=== PATIENT | male | born 1940 | race Caucasian/White ===

== ENCOUNTER 2018-05-27 09:43 | Emergency (ER) | payer MEDICARE, OTHER ==
[~2018-05-27] VITALS: Ht 188 cm; Wt 108.9 kg
[~2018-05-27 09:43] MED LIST: ALBIPROI INH; ALBU.083IS IH; ALBU3IS INH; ALBU90OI6 INH; AMOCLA875 PO; ASCO500 PO; ASPI325EC PO; ASPI81CH PO; AZIT250 PO; AZIT500 PO; BISTOLIC; Bactrim Ds Tab1 EACH PO; CALCAVITD PO; CEFD300 PO; CEPH500 PO; CLOP75 PO; DILT120ER PO; DOC250 PO; ENAL2.5 PO; ENAL20 PO; ENAL5 PO; ENALAPRIL; EZET10; FLUSAL2505 INH; FURO20 PO; HYDACE5 PO; IBUP400 PO; LAVAP17G PO; LEVFLO500 PO; LEVO750 PO; Lasix20 MG PO; MAGOXI400 PO; METO25ER PO; METO50ER PO; NAPROSYN; NEBI10 PO; Norco 5-325 Ta1 EACH PO; OMEP20ER PO; OXYC5 PO; POTCHL20ER PO; PRED10 PO; PRED20 PO; PRED5 PO; Percocet 5-3251 EACH PO; ROFL500T PO; ROSU5 PO; SIMV10 PO; SPIHYD PO; Sulfamethoxazo1 EAC4 PO; TUDORZA PRESS400 MCG IH; TUDORZA PRESS400 MCG INH
[2018-05-27] MEDS ORDERED: NITR.4SL SL (11:20)
[2018-05-27] MEDS ORDERED: ALBU90OI61 INH (11:21)
== END 2018-05-27 12:17 | disposition left against medical advice (07) ==
LOC: ER 09:43
DX: M25.552 Pain in left hip (principal); Z88.8 Allergy status to other drugs, medicaments and biological substances; Z79.899 Other long term (current) drug therapy; Z79.82 Long term (current) use of aspirin; Z79.52 Long term (current) use of systemic steroids; J44.9 Chronic obstructive pulmonary disease, unspecified; I10 Essential (primary) hypertension; Z87.891 Personal history of nicotine dependence; Z86.73 Personal history of transient ischemic attack (TIA), and cerebral infarction without residual deficits
CPT/HCPCS: 72100; 96372; 99283-25; J2270

== ENCOUNTER → 2019-03-21 | Outpatient (CLI) | payer MEDICARE, OTHER ==
[~2019-03-21] MED LIST changes: +ALBU90OI61 INH; +NITR.4SL SL
[2019-03-21 13:05] LABS: Appearance, Urine Hazy (Clear); Bilirubin, Urine Neg (Neg); Blood, Urine 3+ (Neg); Color, Urine Yellow (P-Yellow); Glucose Qualitative, Urine Neg (Neg); Ketones, Urine Neg (Neg); Leukocyte Esterase, Urine 2+ (Neg); Nitrite, Urine Neg (Neg); Protein, Urine 4+ (Neg); Specific Gravity, Urine 1.025 (1.003-1.022); Urobilinogen, Urine NORM (Normal)
[2019-03-21 13:28] LABS: Bacteria Many /hpf; Squamous Epithelial Cells Rare /hpf (Few); White Blood Cells, Urine 25-50 /hpf (0-5)
[2019-03-21 13:29] LABS: Calcium Oxalate Crystals Few /hpf
== END | disposition home or self-care (01) ==
LOC: LAB SHORT 08:33 → LAB SRC 08:33 → LAB 08:33
PROVIDERS: Family Medicine
DX: R35.0 Frequency of micturition (principal); R30.0 Dysuria
CPT/HCPCS: 81001; 87077; 87086; 87186

== ENCOUNTER → 2019-05-23 | Outpatient (CLI) | payer MEDICARE, OTHER | END | disposition home or self-care (01) | LOC: LAB SHORT 11:30 → LAB 11:30 | DX: R35.0 Frequency of micturition (principal) | CPT/HCPCS: 87077; 87086; 87186 ==

== ENCOUNTER 2019-06-23 06:16 | Inpatient (IN) | payer MEDICARE, OTHER ==
[~2019-06-23] VITALS: Ht 188 cm; Wt 111.1 kg
[~2019-06-23 06:16] MED LIST changes: -ASPI81CH PO; +Aspirin EC81 MG PO; +FLUT1DIS5 INH
[2019-06-23 07:17] LABS: BASOPHILS ABSOLUTE AUTO 0.07 K/mm3 (0.00-0.23); BASOPHILS PERCENT AUTO 0 % (0-2); EOSINOPHILS ABSOLUTE AUTO 0.03 K/mm3 (0.00-0.68); EOSINOPHILS PERCENT AUTO 0 % (0-6); Hematocrit 44.8 % (37.0-53.0); Hemoglobin 14.6 g/dL (13.5-17.5); IMMATURE GRAN ABSOLUTE AUTO 0.24 K/mm3 (0.00-0.10); IMMATURE GRAN PERCENT AUTO 1 % (0-1); LYMPHOCYTES ABSOLUTE AUTO 1.41 K/mm3 (0.84-5.20); LYMPHOCYTES PERCENT AUTO 6 % (21-46); MONOCYTES PERCENT AUTO 10 % (4-13); Mean Corpuscular HGB 28.5 pg (26.0-34.0); Mean Corpuscular HGB Conc 32.6 g/dL (31.5-36.5); Mean Corpuscular Volume 87 fL (80-100); Mean Platelet Volume 10.1 fL (9.1-12.4); NEUTROPHILS ABSOLUTE AUTO 20.57 K/mm3 (1.96-9.15); NEUTROPHILS PERCENT AUTO 83 % (41-73); Platelet Count 221 K/mm3 (150-400); RDW Coefficient Variation 14.3 % (11.7-14.2); RDW Standard Deviation 45.9 fL (35.1-46.3); Red Blood Cell Count 5.13 M/mm3 (4.30-5.90); White Blood Cell Count 24.82 K/mm3 (4.00-11.30)
[2019-06-23 07:37] LABS: Alanine Aminotransfer (ALT/SGP 22 U/L (12-78); Albumin, Blood 3.1 g/dL (3.4-5.0); Albumin/Globulin Ratio 0.8 (0.8-1.8); Alk Phos 89 U/L (50-136); Anion Gap 8 mmol/L (6-16); Aspartate Aminotrans (AST/SGOT 30 U/L (12-37); Bilirubin, Total 1.6 mg/dL (0.1-1.0); Blood Urea Nitrogen 17 mg/dL (8-24); CO2, Blood 28 mmol/L (21-32); Calcium, Blood 8.7 mg/dL (8.5-10.1); Chloride, Blood 99 mmol/L (98-108); Creatinine, Blood 0.95 mg/dL (0.60-1.20); Globulin, Blood 3.9 g/dL (2.2-4.0); Glomerular Filtration Rate >60 (60-); Glucose, Blood 81 mg/dL (70-99); Potassium, Blood 3.7 mmol/L (3.5-5.5); Sodium, Blood 135 mmol/L (136-145)
[2019-06-23] MEDS ORDERED: MIRALAX17 GM PO (15:06)
--- NOTE | 2019-06-23 16:37 | NUR ---
Echocardiogram completed.
[2019-06-23 17:45] LABS: Adenovirus Not Detected (NOT DETECT); Coronavirus 229E Not Detected (NOT DETECT); Coronavirus HKU1 Not Detected (NOT DETECT); Coronavirus NL63 Not Detected (NOT DETECT); Coronavirus OC43 Not Detected (NOT DETECT); Human Metapneumovirus Not Detected (NOT DETECT); Human Rhinovirus/Enterovirus Not Detected (NOT DETECT); Influenza A Not Detected (NOT DETECT); Influenza A/H1 Not Detected (NOT DETECT); Influenza A/H3 Not Detected (NOT DETECT)
[2019-06-23 17:46] LABS: Bordetella pertussis Not Detected (NOT DETECT); Chlamydophila pneumoniae Not Detected (NOT DETECT); Influenza A/2009-H1 Not Detected (NOT DETECT); Influenza B Not Detected (NOT DETECT); Mycoplasma pneumoniae Not Detected (NOT DETECT); Parainfluenza Virus 1 Not Detected (NOT DETECT); Parainfluenza Virus 2 Not Detected (NOT DETECT); Parainfluenza Virus 3 Not Detected (NOT DETECT); Parainfluenza Virus 4 Not Detected (NOT DETECT); Respiratory Syncytial Virus Not Detected (NOT DETECT)
--- NOTE | 2019-06-23 19:00 | NUR ---
SHIFT SUMMARY PT INSTRUCTED ON FALL PREVENTION AND ROOM SAFETY. PT WAS ENC TO CALL FOR ASSISTANCE PRIOR TO GETTING OOB, HIS WALKER WAS PLACED ACROSS THE ALLEGRA A REMINDER, THE PT INITIALLY AGREED, 2 MINUTES AFTER LEAVING THE ROOM THE PT WAS FOUND UP WALKING TRYING TO GET THE WALKER TO PLACE IT AT THE BEDSIDE, THE PT WAS REMINDED OF THE SAFETY MEASURES, HE BECAME ANGRY AND STARTED TO ARGUE, PT WAS EDUCATED ABOUT THE BED ALRM AT THIS TIME TO REMIND HIM TO CALL FOR ASSISTANCE, HE REFUSED AND BEGAN TO RAISE HIS VOICE. THE PT WAS OFFERED A CHAIR OR HELP REPOSITIONING IN THE BED, HE REFUSED AND CONTINUED TO ARGUE, THE NOC RN ENTERED THE ROOM, BEDSIDE REPORT WAS GIVEN, THE PT BEGAN TO ARGUE WITH HER OVER SAFETY MEASURES AND STATED THAT HE WOULD "JUST GO HOME BECAUSE HE HAS THE SAME DAMN PILLS THERE". THE PT WAS ENC TO STAY AND THAT WE WERE ONLY CONCERNED FOR HIS SAFETY. HE CONTINUED TO BE ANGRY AND AGRIVATED, THE CHARGE NURSE WAS NOTIFIED AT THIS TIME TO COME SPEAK WITH THE PT. THE PT IS CURRENTLY ON 4 L O2 VIA NC, LUNGS SOUNDS ARE COARSE, DIM IN THE BASES, VSS, SITTING AT THE EDGE OF THE BED, IV IS SL. OXYCODONE GIVEN FOR PAIN PER EMAR. CALL LIGHT IN REACH.
--- NOTE | 2019-06-23 19:43 | NUR ---
PERMISSION FOR CARE PT GAVE STUDENT PERMISSION TO PROVIDE CARE ON 06/23/19.
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
== END 2019-06-23 19:58 | disposition left against medical advice (07) | DRG 871 ==
LOC: ER 06:16 → ERHOLD 11:18 → PCU 13:40
PROVIDERS: Emergency Medicine; Nurse Practitioner Acute Care; ADMIT Internal Medicine
DX: A41.9 Sepsis, unspecified organism (principal); J96.21 Acute and chronic respiratory failure with hypoxia; I21.A1 Myocardial infarction type 2; J44.1 Chronic obstructive pulmonary disease with (acute) exacerbation; N39.0 Urinary tract infection, site not specified; J44.0 Chronic obstructive pulmonary disease with (acute) lower respiratory infection; F11.20 Opioid dependence, uncomplicated; Z99.81 Dependence on supplemental oxygen; I10 Essential (primary) hypertension; Z86.73 Personal history of transient ischemic attack (TIA), and cerebral infarction without residual deficits; Z87.891 Personal history of nicotine dependence; E78.5 Hyperlipidemia, unspecified; Z66 Do not resuscitate; J20.9 Acute bronchitis, unspecified
CPT/HCPCS: 0099U; 36415; 71045; 80053; 83605; 83880; 84145; 84484; 85025; 87040; 87070; 87077; 87081; 87185; 87205; 93005; 93010; 93306; 94640; 94760; 96365; 96375; 99285-25; A9270-GY; J0456; J0696; J1650; J2930; J7050

== ENCOUNTER → 2020-02-06 | Outpatient (CLI) | payer MEDICARE, OTHER ==
[~2020-02-06] MED LIST changes: +MIRALAX17 GM PO
== END | disposition home or self-care (01) ==
LOC: LAB 10:20 → LAB SHORT 10:20
DX: N30.01 Acute cystitis with hematuria (principal)
CPT/HCPCS: 87077; 87086; 87186

== ENCOUNTER → 2020-02-27 | Outpatient (CLI) | payer MEDICARE, OTHER | END | disposition home or self-care (01) | LOC: LAB SHORT 19:08 → LAB 19:08 | DX: N30.01 Acute cystitis with hematuria (principal) | CPT/HCPCS: 87086 ==

== ENCOUNTER 2021-05-15 22:39 | Emergency (ER) | payer MEDICARE, OTHER ==
[~2021-05-15] VITALS: Ht 188 cm; Wt 108.9 kg
[2021-05-15 23:12] LABS: Hematocrit 42.9 % (37.0-53.0); Hemoglobin 14.1 g/dL (13.5-17.5); Mean Corpuscular HGB 28.1 pg (26.0-34.0); Mean Corpuscular HGB Conc 32.9 g/dL (31.5-36.5); Mean Corpuscular Volume 86 fL (80-100); Mean Platelet Volume 9.1 fL (9.1-12.4); Platelet Count 100 K/mm3 (150-400); RDW Coefficient Variation 15.9 % (11.7-14.2); RDW Standard Deviation 49.7 fL (35.1-46.3); Red Blood Cell Count 5.01 M/mm3 (4.30-5.90); White Blood Cell Count 10.86 K/mm3 (4.00-11.30)
[2021-05-15 23:26] LABS: Alanine Aminotransfer (ALT/SGP 59 U/L (12-78); Albumin, Blood 2.4 g/dL (3.4-5.0); Albumin/Globulin Ratio 0.7 (0.8-1.8); Alk Phos 103 U/L (50-136); Anion Gap 7 mmol/L (6-16); Aspartate Aminotrans (AST/SGOT 32 U/L (12-37); Bilirubin, Total 0.5 mg/dL (0.1-1.0); Blood Urea Nitrogen 27 mg/dL (8-24); Bun/Creatinine Ratio 27.6 (12.0-20.0); CO2, Blood 28 mmol/L (21-32); Calcium, Blood 8.8 mg/dL (8.5-10.1); Chloride, Blood 104 mmol/L (98-108); Creatinine, Blood 0.98 mg/dL (0.60-1.20); Globulin, Blood 3.6 g/dL (2.2-4.0); Glomerular Filtration Rate >60 (60-); Glucose, Blood 107 mg/dL (70-99); Potassium, Blood 4.2 mmol/L (3.5-5.5); Sodium, Blood 139 mmol/L (136-145); Troponin I 0.165 ng/mL (0.000-0.040)
[2021-05-15 23:41] LABS: BAND PERCENT MAN 4 % (0-8); BASOPHILS PERCENT MAN 0 % (0-2); EOSINOPHILS PERCENT MAN 0 % (0-6); LYMPHOCYTES ABSOLUTE MAN 0.54 K/mm3 (0.84-5.20); LYMPHOCYTES PERCENT MAN 5 % (21-46); METAMYELOCYTE PERCENT MAN 1 % (0-0); MONOCYTES ABSOLUTE MAN 0.54 K/mm3 (0.16-1.47); MONOCYTES PERCENT MAN 5 % (4-13); MYELOCYTE PERCENT MAN 1 % (0-0); NEUTROPHILS ABSOLUTE MAN 9.55 K/mm3 (1.96-9.15); SEG NEUTROPHILS PERCENT MAN 84 % (41-73); TOTAL CELLS COUNTED 100
[2021-05-16] MEDS ORDERED: Lasix20 MG PO (02:43)
== END 2021-05-16 03:25 | disposition left against medical advice (07) ==
LOC: ER 22:39
PROVIDERS: Emergency Medicine
DX: I21.4 Non-ST elevation (NSTEMI) myocardial infarction (principal); R60.0 Localized edema; S80.811A Abrasion, right lower leg, initial encounter; W18.39XA Other fall on same level, initial encounter; Z79.899 Other long term (current) drug therapy; Z79.82 Long term (current) use of aspirin; Z79.52 Long term (current) use of systemic steroids; J44.9 Chronic obstructive pulmonary disease, unspecified; I10 Essential (primary) hypertension; Z87.891 Personal history of nicotine dependence
CPT/HCPCS: 80053; 83880; 84484; 85025; 93005; 93010; 96374; 99285-25; A9270; J1940

== ENCOUNTER 2021-05-20 06:10 | Emergency (ER) | payer MEDICARE, OTHER ==
[~2021-05-20] VITALS: Ht 188 cm; Wt 108.9 kg
[2021-05-21] MEDS ORDERED: ALBU8HFA2 INH (11:54)
[2021-05-21] MEDS ORDERED: COMBIVENT RESPIM4 G1 (11:55)
[2021-05-21] MEDS ORDERED: NEBI10 PO (11:56)
== END 2021-05-20 14:30 | disposition home or self-care (01) ==
LOC: ER 06:10
DX: M25.551 Pain in right hip (principal); M25.561 Pain in right knee; R60.9 Edema, unspecified; R53.1 Weakness; I10 Essential (primary) hypertension; J44.9 Chronic obstructive pulmonary disease, unspecified; Z99.81 Dependence on supplemental oxygen; Z86.73 Personal history of transient ischemic attack (TIA), and cerebral infarction without residual deficits; Z87.891 Personal history of nicotine dependence
CPT/HCPCS: 70450; 71045; 72100; 73522; 94640; 97162; 97530; J2270

== ENCOUNTER 2021-05-21 06:52 | Inpatient (IN) | payer MEDICARE, OTHER ==
[~2021-05-21] VITALS: Ht 188 cm; Wt 99.8 kg
[2021-05-21 07:45] LABS: BASOPHILS ABSOLUTE AUTO 0.05 K/mm3 (0.00-0.23); BASOPHILS PERCENT AUTO 1 % (0-2); EOSINOPHILS ABSOLUTE AUTO 0.02 K/mm3 (0.00-0.68); EOSINOPHILS PERCENT AUTO 0 % (0-6); Hematocrit 40.5 % (37.0-53.0); Hemoglobin 12.6 g/dL (13.5-17.5); IMMATURE GRAN ABSOLUTE AUTO 0.18 K/mm3 (0.00-0.10); IMMATURE GRAN PERCENT AUTO 2 % (0-1); LYMPHOCYTES ABSOLUTE AUTO 0.97 K/mm3 (0.84-5.20); LYMPHOCYTES PERCENT AUTO 10 % (21-46); MONOCYTES ABSOLUTE AUTO 0.75 K/mm3 (0.16-1.47); MONOCYTES PERCENT AUTO 8 % (4-13); Mean Corpuscular HGB 27.3 pg (26.0-34.0); Mean Corpuscular HGB Conc 31.1 g/dL (31.5-36.5); Mean Corpuscular Volume 88 fL (80-100); Mean Platelet Volume 9.5 fL (9.1-12.4); NEUTROPHILS ABSOLUTE AUTO 7.38 K/mm3 (1.96-9.15); NEUTROPHILS PERCENT AUTO 79 % (41-73); Platelet Count 120 K/mm3 (150-400); RDW Coefficient Variation 15.8 % (11.7-14.2); RDW Standard Deviation 51.1 fL (35.1-46.3); Red Blood Cell Count 4.62 M/mm3 (4.30-5.90); White Blood Cell Count 9.35 K/mm3 (4.00-11.30)
[2021-05-21 08:17] LABS: Alanine Aminotransfer (ALT/SGP 71 U/L (12-78); Albumin, Blood 2.5 g/dL (3.4-5.0); Albumin/Globulin Ratio 0.7 (0.8-1.8); Alk Phos 89 U/L (50-136); Anion Gap 7 mmol/L (6-16); Aspartate Aminotrans (AST/SGOT 43 U/L (12-37); Blood Urea Nitrogen 29 mg/dL (8-24); Bun/Creatinine Ratio 31.7 (12.0-20.0); CO2, Blood 30 mmol/L (21-32); Calcium, Blood 8.8 mg/dL (8.5-10.1); Chloride, Blood 104 mmol/L (98-108); Creatinine, Blood 0.92 mg/dL (0.60-1.20); Globulin, Blood 3.5 g/dL (2.2-4.0); Glomerular Filtration Rate >60 (60-); Glucose, Blood 92 mg/dL (70-99); Potassium, Blood 3.6 mmol/L (3.5-5.5); Sodium, Blood 141 mmol/L (136-145); Troponin I 0.049 ng/mL (0.000-0.040)
[2021-05-21 08:35] LABS: Source, Urine Clean Catch
[2021-05-21 08:44] LABS: Appearance, Urine Cloudy (Clear); Bilirubin, Urine Neg (Neg); Blood, Urine 5+ (Neg); Color, Urine Yellow (P-Yellow); Glucose Qualitative, Urine Neg (Neg); Ketones, Urine 3+ (Neg); Leukocyte Esterase, Urine 3+ (Neg); Nitrite, Urine Neg (Neg); Protein, Urine 3+ (Neg); Urobilinogen, Urine NORM (Normal)
[2021-05-21 08:53] LABS: White Blood Cells, Urine 50-100 /hpf (0-5)
[2021-05-21 08:55] LABS: Bacteria Many /hpf; Granular Casts 0-2 /lpf (0); Squamous Epithelial Cells Rare /hpf (Few)
[2021-05-21 09:41] LABS: Base Excess Venous 7.8 mmol/L; Bicarbonate Venous 28.4 mmol/L (24.0-30.0); PCO2 Venous 63.3 mmHg (38-42); pH Blood Venous 7.33 (7.34-7.37)
[2021-05-21 10:03] LABS: Influenza A, PCR NEGATIVE (NEGATIVE); Influenza B, PCR NEGATIVE (NEGATIVE); Resp Syncytial Virus, PCR NEGATIVE (NEGATIVE); SARS-Cov-2 (COVID-19) PCR, MMC NEGATIVE (NEGATIVE)
[2021-05-21 10:33] LABS: CHOL/HDL RATIO 3.4; Cholesterol 197 mg/dL (50-200); HDL Cholesterol 58 mg/dL (>39); LDL/HDL RATIO 1.8; Low Density Lipoprotein Chol 106 mg/dL (0-110); Triglycerides 166 mg/dL (30-160); Very Low Density Lipoprot Chol 33 mg/dL (6-32)
[2021-05-21 11:24] LABS: U Amphetamine Screen Not Detected; U Barbituate Screen Not Detected; U Benzodiazapine Screen Not Detected; U Cocaine Screen Not Detected; U Methamphetamine Screen Not Detected
[2021-05-21 11:25] LABS: U Buprenorphine Screen Not Detected; U Cannabinoids Screen Not Detected; U Methadone Screen Not Detected; U Opiates Screen DETECTED; U Oxycodone Screen DETECTED; U Phencyclidine Screen Not Detected; U Propoxyphene Screen Not Detected
[2021-05-21] MEDS ORDERED: ALBU8HFA2 INH (11:54)
[2021-05-21] MEDS ORDERED: COMBIVENT RESPIM4 G1 (11:55)
[2021-05-21] MEDS ORDERED: NEBI10 PO (11:56)
[2021-05-21 14:05] LABS: Bicarbonate Venous 29.3 mmol/L (24.0-30.0); PCO2 Venous 56.6 mmHg (38-42); pH Blood Venous 7.37 (7.34-7.37)
--- NOTE | 2021-05-21 17:41 | NUR ---
SHIFT SUMMARY SINCE ARRIVING FROM ED, PT HAS BEEN SLEEPING IN BED. PT IS EASILY ROUSABLE BY VOICE OR GENTLE TOUCH. VSS. PT C/O ABDOMINAL PAIN, STATES THAT IT IS CHRONIC.
[2021-05-22 03:49] LABS: Hematocrit 39.4 % (37.0-53.0); Hemoglobin 12.5 g/dL (13.5-17.5); Mean Corpuscular HGB 28.1 pg (26.0-34.0); Mean Corpuscular HGB Conc 31.7 g/dL (31.5-36.5); Mean Corpuscular Volume 89 fL (80-100); Mean Platelet Volume 9.7 fL (9.1-12.4); Platelet Count 141 K/mm3 (150-400); RDW Coefficient Variation 15.5 % (11.7-14.2); RDW Standard Deviation 50.4 fL (35.1-46.3); Red Blood Cell Count 4.45 M/mm3 (4.30-5.90)
[2021-05-22 04:20] LABS: Anion Gap 9 mmol/L (6-16); Blood Urea Nitrogen 36 mg/dL (8-24); Bun/Creatinine Ratio 37.2 (12.0-20.0); CO2, Blood 31 mmol/L (21-32); Calcium, Blood 9.1 mg/dL (8.5-10.1); Chloride, Blood 104 mmol/L (98-108); Creatinine, Blood 0.97 mg/dL (0.60-1.20); Glomerular Filtration Rate >60 (60-); Glucose, Blood 166 mg/dL (70-99); Sodium, Blood 144 mmol/L (136-145)
[2021-05-22 04:23] LABS: BAND PERCENT MAN 17 % (0-8); BASOPHILS PERCENT MAN 0 % (0-2); EOSINOPHILS PERCENT MAN 0 % (0-6); LYMPHOCYTES ABSOLUTE MAN 0.33 K/mm3 (0.84-5.20); LYMPHOCYTES PERCENT MAN 3 % (21-46); MONOCYTES ABSOLUTE MAN 0.22 K/mm3 (0.16-1.47); MONOCYTES PERCENT MAN 2 % (4-13); NEUTROPHILS ABSOLUTE MAN 10.73 K/mm3 (1.96-9.15); SEG NEUTROPHILS PERCENT MAN 78 % (41-73); TOTAL CELLS COUNTED 100
--- NOTE | 2021-05-22 17:17 | NUR ---
SHIFT SUMMARY PT HAS BEEN RESTING IN ROOM. PT SPENT SOME TIME SITTING AT EDGE OF BED WITH PHYSICAL THERAPY IN ROOM. PT C/O ABDOMINAL PAIN, PT STATED CHRONIC NATURE TO THE PAIN. PT DECLINED PAIN RELIEF MEASURES. VSS, NO ACUTE CHANGES TO CURRENT CONDITION.
[2021-05-23 04:15] LABS: Hematocrit 39.6 % (37.0-53.0); Hemoglobin 12.9 g/dL (13.5-17.5); Mean Corpuscular HGB 27.9 pg (26.0-34.0); Mean Corpuscular HGB Conc 32.6 g/dL (31.5-36.5); Mean Corpuscular Volume 86 fL (80-100); Mean Platelet Volume 9.7 fL (9.1-12.4); Platelet Count 183 K/mm3 (150-400); RDW Coefficient Variation 15.2 % (11.7-14.2); RDW Standard Deviation 47.7 fL (35.1-46.3); Red Blood Cell Count 4.63 M/mm3 (4.30-5.90)
[2021-05-23 05:07] LABS: BAND PERCENT MAN 11 % (0-8); BASOPHILS PERCENT MAN 0 % (0-2); EOSINOPHILS PERCENT MAN 0 % (0-6); LYMPHOCYTES PERCENT MAN 2 % (21-46); MONOCYTES ABSOLUTE MAN 0.45 K/mm3 (0.16-1.47); MONOCYTES PERCENT MAN 3 % (4-13); MYELOCYTE ABSOLUTE MAN 0.15 K/mm3 (0.00-0.00); MYELOCYTE PERCENT MAN 1 % (0-0); SEG NEUTROPHILS PERCENT MAN 83 % (41-73); TOTAL CELLS COUNTED 100
[2021-05-23 06:08] LABS: Albumin, Blood 2.5 g/dL (3.4-5.0); Anion Gap 12 mmol/L (6-16); Blood Urea Nitrogen 51 mg/dL (8-24); Bun/Creatinine Ratio 45.9 (12.0-20.0); CO2, Blood 27 mmol/L (21-32); Calcium, Blood 8.8 mg/dL (8.5-10.1); Chloride, Blood 103 mmol/L (98-108); Creatinine, Blood 1.11 mg/dL (0.60-1.20); Glomerular Filtration Rate >60 (60-); Glucose, Blood 190 mg/dL (70-99); Magnesium, Blood 2.3 mg/dL (1.6-2.4); Phosphorus, Blood 3.7 mg/dL (2.5-4.9); Sodium, Blood 142 mmol/L (136-145)
--- NOTE | 2021-05-23 07:43 | NUR ---
SHIFT SUMMARY PT AOX4 THROUGH NIGHT, HAD SOME EPISODES OF CONFUSION. DID NOT SLEEP WELL T/O NIGHT. SINUS IN 70'S-80'S FOR MOST OF SHIFT. NO C/O OF CP. PT FOLLOWING INSTRUCTIONS FROM PT AND USING LEG MUSCLES ON BOTTOM OF BED T/O SHIFT. PT IS PLEASANT AND COOPERATIVE, ASKS QUESTIONS APPROPRIATELY ALTHOUGH REPEATED QUESTIONS SEVERAL TIMES THOUGH HAVING SOME SHORT TERM MEMORY LOSS. UP TO SIDE OF BED TO SIT SEVERAL TIMES PER REQUEST. SOME DYSPNEA W/EXERTION. SATS MAINTAINED OVER 90% ON 2 L WHILE IN BED. PT EATS ICE CHIPS T/O SHIFT.
[2021-05-23] MEDS ORDERED: LEVO750 PO (07:53)
[2021-05-23] MEDS ORDERED: Aspir 8181 MG PO (07:53)
--- NOTE | 2021-05-23 09:26 | NUR ---
DISCHARGE SUMMARY: Assumed care of pt at approx 0700. A/O, very upset this a.m. stating "you cannot hold me against my will" and insisting on leaving against medical advice. Explained the risks and attempted to discuss medical plan though pt continued to get more confrontational with staff. Call placed to PMD, discharge home d/o received, meds called to [facility] per pt request. Taxi home scheduled per pt request, home O2 bottle empty, pt sent with hospital tank which was agreed to be returned by [facility]. Pt agreed to discharge arrangement though refused to review discharge instuctions, discuss fall prevention, or review medication orders. PIV dc'd by peer RN, escorted from unit via w/c accompanied by PCT, no s/s of acute distress at time of discharge.
== END 2021-05-23 08:10 | disposition left against medical advice (07) | DRG 291 ==
LOC: ER 06:52 → PCU 09:51 → ERHOLD 09:51 → EDBEDREQSVC 10:54 → EDBEDREQTM 10:54 → EDBEDREQ 10:54 → PCU 14:29
PROVIDERS: Emergency Medicine; Internal Medicine; ADMIT Family Medicine
DX: I11.0 Hypertensive heart disease with heart failure (principal); I50.31 Acute diastolic (congestive) heart failure; J96.21 Acute and chronic respiratory failure with hypoxia; J96.22 Acute and chronic respiratory failure with hypercapnia; N39.0 Urinary tract infection, site not specified; F19.20 Other psychoactive substance dependence, uncomplicated; J44.9 Chronic obstructive pulmonary disease, unspecified; R29.6 Repeated falls; R79.89 Other specified abnormal findings of blood chemistry; Z86.73 Personal history of transient ischemic attack (TIA), and cerebral infarction without residual deficits; Z98.890 Other specified postprocedural states; Z88.5 Allergy status to narcotic agent; Z66 Do not resuscitate; Z91.14 Patient's other noncompliance with medication regimen; D69.6 Thrombocytopenia, unspecified; D64.9 Anemia, unspecified; B35.6 Tinea cruris; Z88.8 Allergy status to other drugs, medicaments and biological substances; Z79.899 Other long term (current) drug therapy
CPT/HCPCS: 0241U; 36415; 71045; 74018; 80048; 80053; 80061; 80069; 81001; 82550; 82803; 83605; 83735; 83880; 84145; 84484; 85025; 87040; 87070; 87077; 87086; 87186; 87205; 92610; 93005; 93010; 93306; 94640; 94667; 94760; 96374; 96375; 97110; 97161; 97530; 99285-25; J0456; J0696; J1650; J1940; J2930; J7050

== ENCOUNTER 2021-07-21 11:01 | Inpatient (IN) | payer MEDICARE, OTHER ==
[~2021-07-21] VITALS: Ht 188 cm; Wt 99.8 kg
[~2021-07-21 11:01] MED LIST changes: +ALBU8HFA2 INH; +Aspir 8181 MG PO; +COMBIVENT RESPIM4 G1
[2021-07-21 11:57] LABS: BASOPHILS ABSOLUTE AUTO 0.01 K/mm3 (0.00-0.23); BASOPHILS PERCENT AUTO 0 % (0-2); EOSINOPHILS PERCENT AUTO 0 % (0-6); Hematocrit 37.5 % (37.0-53.0); Hemoglobin 11.6 g/dL (13.5-17.5); IMMATURE GRAN ABSOLUTE AUTO 0.08 K/mm3 (0.00-0.10); IMMATURE GRAN PERCENT AUTO 1 % (0-1); LYMPHOCYTES ABSOLUTE AUTO 0.53 K/mm3 (0.84-5.20); LYMPHOCYTES PERCENT AUTO 6 % (21-46); MONOCYTES ABSOLUTE AUTO 0.72 K/mm3 (0.16-1.47); MONOCYTES PERCENT AUTO 7 % (4-13); Mean Corpuscular HGB 28.2 pg (26.0-34.0); Mean Corpuscular HGB Conc 30.9 g/dL (31.5-36.5); Mean Corpuscular Volume 91 fL (80-100); Mean Platelet Volume 10.2 fL (9.1-12.4); NEUTROPHILS ABSOLUTE AUTO 8.37 K/mm3 (1.96-9.15); NEUTROPHILS PERCENT AUTO 86 % (41-73); Platelet Count 244 K/mm3 (150-400); RDW Coefficient Variation 15.7 % (11.7-14.2); RDW Standard Deviation 52.7 fL (35.1-46.3); Red Blood Cell Count 4.12 M/mm3 (4.30-5.90); White Blood Cell Count 9.71 K/mm3 (4.00-11.30)
[2021-07-21 12:15] LABS: Alanine Aminotransfer (ALT/SGP 26 U/L (12-78); Albumin, Blood 3.4 g/dL (3.4-5.0); Albumin/Globulin Ratio 0.9 (0.8-1.8); Alk Phos 86 U/L (50-136); Anion Gap 7 mmol/L (6-16); Aspartate Aminotrans (AST/SGOT 28 U/L (12-37); Bilirubin, Total 0.8 mg/dL (0.1-1.0); Blood Urea Nitrogen 39 mg/dL (8-24); Bun/Creatinine Ratio 38.6 (12.0-20.0); CO2, Blood 29 mmol/L (21-32); Calcium, Blood 9.2 mg/dL (8.5-10.1); Chloride, Blood 105 mmol/L (98-108); Creatinine, Blood 1.01 mg/dL (0.60-1.20); Globulin, Blood 3.6 g/dL (2.2-4.0); Glomerular Filtration Rate >60 (60-); Glucose, Blood 69 mg/dL (70-99); Potassium, Blood 3.6 mmol/L (3.5-5.5); Sodium, Blood 141 mmol/L (136-145)
[2021-07-21 12:19] LABS: Ethanol (Alcohol), Blood, Med <3 mg/dL; Magnesium, Blood 2.2 mg/dL (1.6-2.4)
[2021-07-21 12:32] LABS: CPK Creatine Kinase 92 U/L (39-308)
[2021-07-21 17:40] LABS: Source, Urine Clean Catch
[2021-07-21 18:18] LABS: Appearance, Urine Clear (Clear); Bilirubin, Urine Neg (Neg); Blood, Urine 3+ (Neg); Color, Urine Yellow (P-Yellow); Glucose Qualitative, Urine Neg (Neg); Ketones, Urine 2+ (Neg); Leukocyte Esterase, Urine 1+ (Neg); Nitrite, Urine Neg (Neg); Protein, Urine 3+ (Neg); Urobilinogen, Urine NORM (Normal)
[2021-07-21 18:33] LABS: Bacteria Many /hpf; White Blood Cells, Urine 25-50 /hpf (0-5)
[2021-07-21 18:34] LABS: Squamous Epithelial Cells Few /hpf (Few)
[2021-07-21 18:47] LABS: U Amphetamine Screen Not Detected; U Barbituate Screen Not Detected; U Benzodiazapine Screen Not Detected; U Buprenorphine Screen Not Detected; U Cannabinoids Screen Not Detected; U Cocaine Screen Not Detected; U Methadone Screen Not Detected; U Methamphetamine Screen Not Detected; U Opiates Screen Not Detected; U Oxycodone Screen DETECTED; U Phencyclidine Screen Not Detected; U Propoxyphene Screen Not Detected
[2021-07-22 02:27] LABS: Hematocrit 37.7 % (37.0-53.0); Hemoglobin 11.7 g/dL (13.5-17.5); Mean Corpuscular HGB 28.3 pg (26.0-34.0); Mean Corpuscular Volume 91 fL (80-100); Mean Platelet Volume 10.4 fL (9.1-12.4); Platelet Count 219 K/mm3 (150-400); RDW Coefficient Variation 15.5 % (11.7-14.2); RDW Standard Deviation 51.8 fL (35.1-46.3); Red Blood Cell Count 4.13 M/mm3 (4.30-5.90); White Blood Cell Count 12.11 K/mm3 (4.00-11.30)
[2021-07-22 02:52] LABS: Anion Gap 8 mmol/L (6-16); Blood Urea Nitrogen 33 mg/dL (8-24); Bun/Creatinine Ratio 37.3 (12.0-20.0); CO2, Blood 28 mmol/L (21-32); Calcium, Blood 8.9 mg/dL (8.5-10.1); Chloride, Blood 107 mmol/L (98-108); Creatinine, Blood 0.88 mg/dL (0.60-1.20); Glomerular Filtration Rate >60 (60-); Glucose, Blood 62 mg/dL (70-99); Potassium, Blood 3.7 mmol/L (3.5-5.5); Sodium, Blood 143 mmol/L (136-145)
--- NOTE | 2021-07-22 06:45 | NUR ---
PT ARRIVED TO UNIT @192 - PT ALERT, SLOW TO FOLLOW COMMANDS, AGITATED AND ORIENTED TO SELF ONLY AND NOT AGREEABLE TO ANSWER ANY OTHER QUESTIONS. REDIRECTION SUCCESSFUL. VITALS OBTAINED. PT WITH COMPLAINTS OF BACK PAIN - STATES TAKES "A COUPLE" OXYCODONE AT HOME WHEN PAIN OCCURS. OFFERED HEATING PAD AND REPOSITIONING. 2039 - NOTIFIED PROVIDER PRESSURE SEALER AND TESTER - DR. SAEED OF PT HAVING BRADYCARDIA WHEN SLEEPING DOWN TO 35-40 NON SUSTAINED WELL PT WITH URGENCY AND BLADDER SCAN SHOWING 450 POST VOID. PER SCATH X1 AND BLADDER SCAN 6 HOURS AFTER. PT TOLERATED WELL. 0550 - POC GLUCOSE 51. PT EASY TO AROUSE AND ALERT. GAVE 8OZ OJ AND TOOK LOTS OF ENCOURAGEMENT TO FINISH. NOTIFIED DR. SALEH - HYPOGLYCEMIA PROTOCOL ORDERED AND 1/2 AMP OF D50. 0615 - NOTIFIED DR. SALEH THAT PHARMACY DOES NOT HAVE ANY D50 DUE TO A SHORTAGE. GLUCOSE 54 AFTER OJ. PER MD START D5 1/2 NS @75ML/HR. TRYING TO ENCOURAGE MORE PO INTAKE. 0635 - POC GLUCOSE 65. CONTINUING TO MONITOR Q15-20. WILL PASS ON TO ONCOMING SHIFT.
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
--- NOTE | 2021-07-22 15:20 | NUR ---
FULL BED CHANGE PROVIDED, CONDOM CATH PLACED.
[2021-07-22 16:01] LABS: Influenza A, PCR NEGATIVE (NEGATIVE); Influenza B, PCR NEGATIVE (NEGATIVE); Resp Syncytial Virus, PCR NEGATIVE (NEGATIVE); SARS-Cov-2 (COVID-19) PCR, MMC NEGATIVE (NEGATIVE)
[2021-07-22 18:08] LABS: Source, Urine Foley catheter
--- NOTE | 2021-07-22 18:21 | NUR ---
SHIFT SUMMARY ASSUMED CARE AT 0700, A/A/0X3 WITH INTERMITANT CONFUSION. SEE PREVIOUS NOTES FOR BEHAVIOR PROBLEMS DURING SHIFT. DIFFICULT TO REDIRECT, SHOUTS AND YELLS FROM ROOM, CURSES AND CALLS STAFF NAMES. CASIE VEST AND TAT RESTRAINTS DURING SHIFT. CASIE IN PLACE AT THIS TIME WITH BED ALARM SET. REPOSITIONS SELF IN BED, USES URINAL. SEVERAL URINAL VOIDS DURING SHIFT BUT C/O ABD PAIN IN AFTERNOON. BLADDER SCAN >900. ZIEGLER CATH PLACED DRAINING CLEAR YELLOW URINE. D5 DC'D TODAY PER ORDERS. L/S WET AND COARSE T/O. 2+ EDEMA BLE. EXCORIATIONS TO ARMS AND LEGS BILATERALLY FROM PREVIOUS FALLS AT HOME. WILL CONTINUE TO MONITOR AND TREAT UNTIL CHANGE OF SHIFT.
[2021-07-22 18:48] LABS: Appearance, Urine Clear (Clear); Bilirubin, Urine Neg (Neg); Blood, Urine 4+ (Neg); Glucose Qualitative, Urine Neg (Neg); Ketones, Urine 1+ (Neg); Leukocyte Esterase, Urine 1+ (Neg); Nitrite, Urine Neg (Neg); Protein, Urine 3+ (Neg); Urobilinogen, Urine NORM (Normal)
[2021-07-22 19:09] LABS: Color, Urine Pale Yellow (P-Yellow)
[2021-07-22 19:10] LABS: Bacteria Many /hpf; Squamous Epithelial Cells Rare /hpf (Few); White Blood Cells, Urine 25-50 /hpf (0-5)
[2021-07-22 19:11] LABS: Hyaline Casts 0-2 /lpf (0-2); RBC Cast 0-2 /lpf (0)
[2021-07-23 04:06] LABS: BASOPHILS ABSOLUTE AUTO 0.02 K/mm3 (0.00-0.23); BASOPHILS PERCENT AUTO 0 % (0-2); EOSINOPHILS ABSOLUTE AUTO 0.03 K/mm3 (0.00-0.68); EOSINOPHILS PERCENT AUTO 0 % (0-6); Hematocrit 40.1 % (37.0-53.0); Hemoglobin 12.6 g/dL (13.5-17.5); IMMATURE GRAN ABSOLUTE AUTO 0.08 K/mm3 (0.00-0.10); IMMATURE GRAN PERCENT AUTO 1 % (0-1); LYMPHOCYTES ABSOLUTE AUTO 1.56 K/mm3 (0.84-5.20); LYMPHOCYTES PERCENT AUTO 12 % (21-46); MONOCYTES ABSOLUTE AUTO 1.63 K/mm3 (0.16-1.47); MONOCYTES PERCENT AUTO 12 % (4-13); Mean Corpuscular HGB 28.1 pg (26.0-34.0); Mean Corpuscular HGB Conc 31.4 g/dL (31.5-36.5); Mean Corpuscular Volume 89 fL (80-100); Mean Platelet Volume 10.7 fL (9.1-12.4); NEUTROPHILS ABSOLUTE AUTO 9.98 K/mm3 (1.96-9.15); NEUTROPHILS PERCENT AUTO 75 % (41-73); Platelet Count 253 K/mm3 (150-400); RDW Coefficient Variation 15.3 % (11.7-14.2); RDW Standard Deviation 50.1 fL (35.1-46.3); Red Blood Cell Count 4.49 M/mm3 (4.30-5.90)
[2021-07-23 04:25] LABS: Anion Gap 8 mmol/L (6-16); Blood Urea Nitrogen 18 mg/dL (8-24); Bun/Creatinine Ratio 22.8 (12.0-20.0); CO2, Blood 34 mmol/L (21-32); Calcium, Blood 9.1 mg/dL (8.5-10.1); Chloride, Blood 99 mmol/L (98-108); Creatinine, Blood 0.79 mg/dL (0.60-1.20); Glomerular Filtration Rate >60 (60-); Glucose, Blood 85 mg/dL (70-99); Potassium, Blood 3.1 mmol/L (3.5-5.5); Sodium, Blood 141 mmol/L (136-145)
--- NOTE | 2021-07-23 06:15 | NUR ---
SHIFT SUMMARY ASSUMED CARE OF PT @ 191. PT AGITATED OVERNIGHT, SLEPT VERY LITTLE. CASIE VEST IN PLACE AT START OF SHIFT. ORIENTED TO SELF ONLY AND ATTEMPTING TO GET OUT OF BED WITHOUT ASSISTANCE. PT YELLING OUT, CALLING STAFF NAMES. SETTING BOUNDARIES, DECREASE IN STIMULATION, AND REDIRECTION NOT SUCCESSFUL. GAVE PRN MEDICATION FOR AGITATION WITH NO CHANGE IN BEHAVIOR. FOUND PT IN ROOM DIGGING FINGERS INTO ANUS WITH FECES ON HANDS AND SMEARED ON BED RAILS. PULLING AT IV AND ZIEGLER CATHETER. SCRATCHES NOTED AROUND BUTTOCKS FROM PT FINGERNAILS. ON-CALL MD DR. CORRALES NOTIFIED OF CONTINUED AGITATION AND SOFT LIMB RESTRAINTS PLACED. CASIE VEST REMOVED. ORDER FOR IV ZYPREXA RECEIVED. SEE EMAR FOR DETAILS. PT CONTINUES TO BE VERBALLY COMBATIVE AND PULLING AT LINES WHEN AWAKE. VSS PER PT TREND. WILL PASS ON TO DAY RN.
--- NOTE | 2021-07-23 17:16 | NUR ---
REPORT TO MEDICAL FLOOR RN. PRIOR TO TAKING PT TO FLOOR RIPPED TELEMETRY OFF AND SWUNG AND NURSE. ATTEMPTED TO GRAB LASER PRINT OPERATOR. WHEN VERBALLY REDIRECTED THAT BEHAVIOR IS NOT TOLERATED YELLED WE ARE ALL "FING LIARS". DENIES SWINGING OR ATTEMPTING TO HIT. LOCKED BILATERAL WRIST RESTRAINTS PLACED FOR SAFTEY. TRANSFER WITH ZIEGLER IN PLACE DRAINING YELLOW URINE. MOVES AROUND ON R, AT BASELINE NC 2L. VSS.
--- NOTE | 2021-07-23 17:34 | NUR ---
ERIKA SUMMARY PATIENT TRANFERED FROM PCU TO ROOM 350. PATIENT SETTLED INTO ROOM. PATIENT TRANSFERED WITH TOUGH CUFFS ON. PATIENT REFUSING TO ANSWER ANY QUESTIONS. PATIENT YELLS/CUSSES AT THIS RN WHEN FLUSHING IV. PATIENT REFUSED PT EVAL TODAY. PATIENT HAS POOR PO INTAKE.
--- NOTE | 2021-07-24 04:30 | NUR ---
NURSE NOTE - 0420 DELFINO NOTIFIED PT VITALS. TEMP 96.1 BP 177/83 PULSE 47 DUE TO BRADYCARDIA DURING THIS HOSPITALIZATION MD GAVE ORDER TO PLACE PATIENT ON TELEMETRY AND TO OBTAIN STAT EKG. NO INTERVENTIONS FOR BP AT THIS TIME, MD REQUESTED TO RECHECK WITHIN 10 MIN. AND RE-WARM WITH WARM BLANKETS. WILL CONTINUE TO MONITOR AND NOTIFY IF VITALS REMAIN ABNORMAL.
--- NOTE | 2021-07-24 04:33 | NUR ---
SHIFT SUMMARY: DURING THIS SHIFT RESTRAINTS WERE REMOVED DUE TO PATIENTS CALM STATE, NOT TRYING TO PULL AT LINES, NOT TRYING TO GET OUT OF BED AND FOLLOWING DIRECTIONS. CAMERA MONITORING, BED ALARM, BED LOW POSITION, ITEMS IN REACH. PT IS NOW A/O X3 DISORIENTED TO TIME AND SITUATION. PATIENT DID HAVE A HYPOGLYCEMIC EPISODE THAT WAS RESOLVED WITH 2 ORANGE JUICE. TELEMETRY WAS RE-ORDERED AND PLACED ON PATIENT DUE TO ROUTINE VITALS NOTING BRADYCARDIA. ZIEGLER CATHETER DRAINING WELL. PATIENT HAD SMALL BM THIS SHIFT
[2021-07-24 04:49] LABS: BASOPHILS ABSOLUTE AUTO 0.02 K/mm3 (0.00-0.23); BASOPHILS PERCENT AUTO 0 % (0-2); EOSINOPHILS ABSOLUTE AUTO 0.12 K/mm3 (0.00-0.68); EOSINOPHILS PERCENT AUTO 1 % (0-6); Hematocrit 37.1 % (37.0-53.0); Hemoglobin 11.7 g/dL (13.5-17.5); IMMATURE GRAN ABSOLUTE AUTO 0.09 K/mm3 (0.00-0.10); IMMATURE GRAN PERCENT AUTO 1 % (0-1); LYMPHOCYTES ABSOLUTE AUTO 1.57 K/mm3 (0.84-5.20); LYMPHOCYTES PERCENT AUTO 17 % (21-46); MONOCYTES PERCENT AUTO 13 % (4-13); Mean Corpuscular HGB 28.3 pg (26.0-34.0); Mean Corpuscular HGB Conc 31.5 g/dL (31.5-36.5); Mean Corpuscular Volume 90 fL (80-100); Mean Platelet Volume 10.9 fL (9.1-12.4); NEUTROPHILS ABSOLUTE AUTO 6.37 K/mm3 (1.96-9.15); NEUTROPHILS PERCENT AUTO 68 % (41-73); Platelet Count 217 K/mm3 (150-400); RDW Coefficient Variation 15.3 % (11.7-14.2); RDW Standard Deviation 50.9 fL (35.1-46.3); Red Blood Cell Count 4.13 M/mm3 (4.30-5.90); White Blood Cell Count 9.37 K/mm3 (4.00-11.30)
[2021-07-24 05:09] LABS: Albumin, Blood 2.5 g/dL (3.4-5.0); Anion Gap 6 mmol/L (6-16); Blood Urea Nitrogen 15 mg/dL (8-24); Bun/Creatinine Ratio 18.3 (12.0-20.0); CO2, Blood 34 mmol/L (21-32); Calcium, Blood 9.2 mg/dL (8.5-10.1); Chloride, Blood 100 mmol/L (98-108); Creatinine, Blood 0.82 mg/dL (0.60-1.20); Glomerular Filtration Rate >60 (60-); Glucose, Blood 103 mg/dL (70-99); Magnesium, Blood 1.8 mg/dL (1.6-2.4); Phosphorus, Blood 2.4 mg/dL (2.5-4.9); Potassium, Blood 2.8 mmol/L (3.5-5.5); Sodium, Blood 140 mmol/L (136-145)
--- NOTE | 2021-07-24 12:36 | NUR ---
ACCESSED PT CHART TO ADD MAD ORDER FOR BEHAVIOR YESTERDAY.
[2021-07-24 13:45] LABS: Albumin, Blood 2.8 g/dL (3.4-5.0); Anion Gap 5 mmol/L (6-16); Blood Urea Nitrogen 14 mg/dL (8-24); Bun/Creatinine Ratio 17.2 (12.0-20.0); CO2, Blood 30 mmol/L (21-32); Calcium, Blood 9.1 mg/dL (8.5-10.1); Chloride, Blood 101 mmol/L (98-108); Creatinine, Blood 0.82 mg/dL (0.60-1.20); Glomerular Filtration Rate >60 (60-); Glucose, Blood 170 mg/dL (70-99); Phosphorus, Blood 3.4 mg/dL (2.5-4.9); Potassium, Blood 3.6 mmol/L (3.5-5.5); Sodium, Blood 136 mmol/L (136-145)
--- NOTE | 2021-07-24 17:43 | NUR ---
SHIFT SUMMARY PATIENT DENIES PAIN, NAUSEA, AND SHORTNESS OF BREATH. PATIENT IS A 2P FOR TRANSFERS, FOR SAFETY AND LINE MANAGEMENT. PT WORKED WITH PATIENT TODAY. PATIENT IS A&O 2-3. PATIENT IS FOLLOWING DIRECTIONS WELL. PATIENT IS VERY COOPERATIVE WITH CARE. PATIENT IS BEING VERY APPROPRIATE WITH STAFF, EVEN JOKING SOME. PATIENT IS EATING AND DRINKING WELL. ZIEGLER IS PATIENT AND DRAINING TO GRAVITY. PATIENT HAS NOT TRIED TO PULL AT ANY LINES. POTASSIUM PHOSPHATE IV ORDERED FOR REPLACMENT OF POTASSIUM, IT WAS 2.8 THIS MORNING. PATIENT IS ON 2L VIA N/C. THIS IS BASELINE. PATIENT IS PLEASANT AND COOPERATIVE WITH CARE. PATIENT EVEN MENTIONED TO THIS RN THAT HE UNDERSTAND HE CANNOT GO HOME RIGHT NOW, HE IS TOO WEAK.
[2021-07-25 04:44] LABS: BASOPHILS ABSOLUTE AUTO 0.02 K/mm3 (0.00-0.23); BASOPHILS PERCENT AUTO 0 % (0-2); EOSINOPHILS ABSOLUTE AUTO 0.07 K/mm3 (0.00-0.68); EOSINOPHILS PERCENT AUTO 1 % (0-6); Hematocrit 37.5 % (37.0-53.0); Hemoglobin 11.9 g/dL (13.5-17.5); IMMATURE GRAN ABSOLUTE AUTO 0.11 K/mm3 (0.00-0.10); IMMATURE GRAN PERCENT AUTO 1 % (0-1); LYMPHOCYTES ABSOLUTE AUTO 1.35 K/mm3 (0.84-5.20); LYMPHOCYTES PERCENT AUTO 15 % (21-46); MONOCYTES ABSOLUTE AUTO 1.06 K/mm3 (0.16-1.47); MONOCYTES PERCENT AUTO 11 % (4-13); Mean Corpuscular HGB 28.3 pg (26.0-34.0); Mean Corpuscular HGB Conc 31.7 g/dL (31.5-36.5); Mean Corpuscular Volume 89 fL (80-100); Mean Platelet Volume 10.7 fL (9.1-12.4); NEUTROPHILS ABSOLUTE AUTO 6.71 K/mm3 (1.96-9.15); NEUTROPHILS PERCENT AUTO 72 % (41-73); Platelet Count 248 K/mm3 (150-400); RDW Coefficient Variation 15.1 % (11.7-14.2); RDW Standard Deviation 49.5 fL (35.1-46.3); Red Blood Cell Count 4.21 M/mm3 (4.30-5.90); White Blood Cell Count 9.32 K/mm3 (4.00-11.30)
[2021-07-25 05:03] LABS: Albumin, Blood 2.5 g/dL (3.4-5.0); Anion Gap 5 mmol/L (6-16); Blood Urea Nitrogen 11 mg/dL (8-24); Bun/Creatinine Ratio 13.4 (12.0-20.0); CO2, Blood 33 mmol/L (21-32); Calcium, Blood 8.9 mg/dL (8.5-10.1); Chloride, Blood 102 mmol/L (98-108); Creatinine, Blood 0.82 mg/dL (0.60-1.20); Glomerular Filtration Rate >60 (60-); Glucose, Blood 117 mg/dL (70-99); Phosphorus, Blood 2.5 mg/dL (2.5-4.9); Potassium, Blood 3.3 mmol/L (3.5-5.5); Sodium, Blood 140 mmol/L (136-145)
--- NOTE | 2021-07-25 14:43 | NUR ---
MAD Consult received. Chart reviewed and visit to floor. Patient has confusion, more so some times than others. Was more cooperative at time of visit and pleasant. Not fully oriented to be able to remember prior behavior. Does not meet requirements for MAD intervention at this point.
--- NOTE | 2021-07-25 15:49 | NUR ---
PATIENT ALERT AND ORIENTD X 2-3. FOLLOW DIRECTIONS. COOPERATIVE WITH CARE. ON TELE MONITOR, ZIEGLER IN PLACE. DENIES PAIN THROUGHOUT THE SHIFT. SHEDULED MEDICATION ADMINISTRATED WELL POTASIUM D/T K+ 3.3. PATIENT ON OXYGEN 2L/MIN VIA N/C. DENIES SOB. PATIENT HAS ORDERS TO DISCHARE HOME WITH HOME HEALTH.
[2021-07-25] MEDS ORDERED: LEVFLO500 PO (16:19)
--- NOTE | 2021-07-25 22:09 | NUR ---
PATIENT DISCHARGED WITH TRANSPORTER ABOUT 2200. O2@2L VIA N/C, NO ACUTE DISTRESS. AMBULATED TO W/C WITH SUPERVISION.
[2021-08-07] MEDS ORDERED: Percocet 5-3251 EACH PO (12:57)
== END 2021-07-25 21:50 | disposition home or self-care (01) | DRG 689 ==
LOC: ER 11:01 → MEDS 11:02 → ER 11:02 → PCU 11:02 → MEDS 07-23 16:33 → ENPENDDIS 07-25 15:24 → MEDS 07-25 21:50
PROVIDERS: Emergency Medicine; Internal Medicine; Student in an Organized Health Care Education/Training Program; ADMIT Internal Medicine
DX: N39.0 Urinary tract infection, site not specified (principal); G92.8 Other toxic encephalopathy; E86.0 Dehydration; J44.9 Chronic obstructive pulmonary disease, unspecified; Z99.81 Dependence on supplemental oxygen; I10 Essential (primary) hypertension; E78.5 Hyperlipidemia, unspecified; W18.30XA Fall on same level, unspecified, initial encounter; R00.1 Bradycardia, unspecified; R55 Syncope and collapse; B96.1 Klebsiella pneumoniae [K. pneumoniae] as the cause of diseases classified elsewhere; Z86.73 Personal history of transient ischemic attack (TIA), and cerebral infarction without residual deficits; Z79.899 Other long term (current) drug therapy; Z79.82 Long term (current) use of aspirin; Z66 Do not resuscitate; Z91.14 Patient's other noncompliance with medication regimen; Z20.822 Contact with and (suspected) exposure to COVID-19; Z88.8 Allergy status to other drugs, medicaments and biological substances; E16.2 Hypoglycemia, unspecified
CPT/HCPCS: 0241U; 36415; 51701; 51702; 70450; 71045; 80048; 80053; 80069; 81001; 82550; 82947; 83605; 83735; 83880; 84439; 84443; 84484; 85025; 85027; 87040; 87077; 87086; 87186; 93005; 93010; 94640; 94664; 94760; 96365; 96366; 96372; 96372-59; 96374; 96375; 97110; 97162; 97530; 99285-25; A9270; G0378; G0480; J0461; J0696; J1610; J1630; J1650; J1790; J1940; J2060; J7030; J7042; J7060; J7512

== ENCOUNTER 2021-07-31 20:43 | Observation (INO) | payer MEDICARE, OTHER ==
[~2021-07-31] VITALS: Ht 188 cm; Wt 87.0 kg
[2021-07-31 22:20] LABS: BASOPHILS ABSOLUTE AUTO 0.02 K/mm3 (0.00-0.23); BASOPHILS PERCENT AUTO 0 % (0-2); EOSINOPHILS ABSOLUTE AUTO 0.03 K/mm3 (0.00-0.68); EOSINOPHILS PERCENT AUTO 0 % (0-6); Hemoglobin 12.3 g/dL (13.5-17.5); IMMATURE GRAN ABSOLUTE AUTO 0.11 K/mm3 (0.00-0.10); IMMATURE GRAN PERCENT AUTO 1 % (0-1); LYMPHOCYTES ABSOLUTE AUTO 0.86 K/mm3 (0.84-5.20); LYMPHOCYTES PERCENT AUTO 7 % (21-46); MONOCYTES ABSOLUTE AUTO 1.54 K/mm3 (0.16-1.47); MONOCYTES PERCENT AUTO 12 % (4-13); Mean Corpuscular HGB Conc 31.5 g/dL (31.5-36.5); Mean Corpuscular Volume 89 fL (80-100); Mean Platelet Volume 9.7 fL (9.1-12.4); NEUTROPHILS ABSOLUTE AUTO 10.37 K/mm3 (1.96-9.15); NEUTROPHILS PERCENT AUTO 80 % (41-73); Platelet Count 297 K/mm3 (150-400); RDW Coefficient Variation 14.8 % (11.7-14.2); RDW Standard Deviation 47.9 fL (35.1-46.3); Red Blood Cell Count 4.39 M/mm3 (4.30-5.90); White Blood Cell Count 12.93 K/mm3 (4.00-11.30)
[2021-07-31 22:37] LABS: Bun/Creatinine Ratio 18.9 (12.0-20.0); Calcium, Blood 9.6 mg/dL (8.5-10.1); Creatinine, Blood 1.69 mg/dL (0.60-1.20); Potassium, Blood 3.1 mmol/L (3.5-5.5)
[2021-08-01 01:56] LABS: Base Excess Venous 6.2 mmol/L; Bicarbonate Venous 29.3 mmol/L (24.0-30.0); PCO2 Venous 46.4 mmHg (38-42); PO2 Venous 171 mmHg (38-42); pH Blood Venous 7.43 (7.34-7.37)
[2021-08-01 02:03] LABS: Source, Urine Clean Catch
[2021-08-01 02:05] LABS: Bilirubin, Urine Neg (Neg); Blood, Urine 5+ (Neg); Glucose Qualitative, Urine Neg (Neg); Ketones, Urine 2+ (Neg); Leukocyte Esterase, Urine 3+ (Neg); Nitrite, Urine Neg (Neg); Protein, Urine 3+ (Neg); Specific Gravity, Urine 1.025 (1.003-1.022); Urobilinogen, Urine NORM (Normal)
[2021-08-01 02:07] LABS: Appearance, Urine Hazy (Clear); Color, Urine Yellow (P-Yellow)
[2021-08-01 02:13] LABS: Bacteria Many /hpf; Red Blood Cells, Urine 0-2 /hpf (0-2); Squamous Epithelial Cells Not Seen /hpf (Few); White Blood Cells, Urine TNTC /hpf (0-5)
[2021-08-01 04:39] LABS: BASOPHILS ABSOLUTE AUTO 0.02 K/mm3 (0.00-0.23); BASOPHILS PERCENT AUTO 0 % (0-2); EOSINOPHILS ABSOLUTE AUTO 0.05 K/mm3 (0.00-0.68); EOSINOPHILS PERCENT AUTO 1 % (0-6); Hematocrit 35.2 % (37.0-53.0); Hemoglobin 11.1 g/dL (13.5-17.5); IMMATURE GRAN ABSOLUTE AUTO 0.08 K/mm3 (0.00-0.10); IMMATURE GRAN PERCENT AUTO 1 % (0-1); LYMPHOCYTES ABSOLUTE AUTO 1.05 K/mm3 (0.84-5.20); LYMPHOCYTES PERCENT AUTO 12 % (21-46); MONOCYTES ABSOLUTE AUTO 0.95 K/mm3 (0.16-1.47); MONOCYTES PERCENT AUTO 11 % (4-13); Mean Corpuscular HGB 28.5 pg (26.0-34.0); Mean Corpuscular HGB Conc 31.5 g/dL (31.5-36.5); Mean Corpuscular Volume 91 fL (80-100); Mean Platelet Volume 9.8 fL (9.1-12.4); NEUTROPHILS ABSOLUTE AUTO 6.72 K/mm3 (1.96-9.15); NEUTROPHILS PERCENT AUTO 76 % (41-73); Platelet Count 246 K/mm3 (150-400); RDW Standard Deviation 49.5 fL (35.1-46.3); Red Blood Cell Count 3.89 M/mm3 (4.30-5.90); White Blood Cell Count 8.87 K/mm3 (4.00-11.30)
[2021-08-01 05:07] LABS: Albumin, Blood 2.5 g/dL (3.4-5.0); Albumin/Globulin Ratio 0.8 (0.8-1.8); Bilirubin, Total 0.4 mg/dL (0.1-1.0); Bun/Creatinine Ratio 19.7 (12.0-20.0); Creatinine, Blood 1.42 mg/dL (0.60-1.20); Globulin, Blood 3.1 g/dL (2.2-4.0); Potassium, Blood 2.9 mmol/L (3.5-5.5); Total Protein, Blood 5.6 g/dL (6.4-8.2)
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
--- NOTE | 2021-08-01 15:44 | NUR ---
PHYSICAL THERAPY IN ROOM TO ASSESS PT, CLOSES EYES AND REFUSES TO ANSWER QUESTIONS. UPON FURTHER PROMTING PT BECOMES ANGRY AND STATES WANTS LEFT ALONE. LOOKS AT THIS RN AND STATES TO GET OUT OF ROOM. FRUIT FARMER JENNYFER TO ROOM. TELLS PHYSICAL THERAPIST HE DOESN'T KNOW WHY SHE NEEDS TO KNOW HOW HE GETS ALONG AT HOME, HE IS JUST FINE. TELLS FRUIT FARMER TO GIVE HIM HIS CLOTHES SO HE CAN LEAVE. PT ASKED TO SIT ON EDGE OF BED TO ASSESS ABILITY, REFUSES, TELLS STAFF TO LEAVE HIM ALONE. ABLE TO REMEMBER PHYSICAL THERAPIST QUESTIONS. ORIENTED TO SELF, SITUATION AND HOME SITUATION. BOUNDARIES GIVEN TO BE RESPECTFUL OF STAFF, PT MOCKS REQUEST. MAD ORDER PLACED.
--- NOTE | 2021-08-01 16:04 | NUR ---
PT ON PHONE WITH FRIEND. CONVERSATION WHITNESSED BY MYSELF AND NICU RN. ORIENTED AND APPRORIATE ON PHONE. TELLS PERSON ON PHONE WE REFUSE TO LET HIM UP, IN ROOM APPROX 10 MINS AGO AND PT REFUSED TO TO TRY AND GET UP. FURTHER TELLS PERSON ON PHONE "I'M DIFFICULTY TO GET ALONG WITH".
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
--- NOTE | 2021-08-01 19:41 | NUR ---
CARE ASSUMPTION PT IS ALERT BUT CONFUSED HAVING TROUBLE W SIMPLE TASKS AND FORGETTING CONVERSATIONS THAT WE JUST HAD. O2 SATS >90% ON 2L NC. BP WNL AND STABLE. TELE SHOWING SR IN THE 80'S. PT REPORTING GENERALIZED SORENESS BUT DENIES ANY SIGNIFICANT PAIN OR NAUSEA. PT HAS WET COUGH BUT REPORTS THAT HE HAS HAD TROUBLE PRODUCING ANY SPUTUM. WCTM
--- NOTE | 2021-08-02 03:58 | NUR ---
UPDATE PT HAD TWO VERY LARGE BOWEL MOVEMENTS FROM HIS URETHRA. PROVIDER NOTIFIED AND IMAGING ORDERED. PT IS HEMODYNAMICALLY STABLE W NO OTHER CHANGES. DONOR RELATIONS ASSOCIATE PRIYANKA NOTIFIED.
[2021-08-02 04:25] LABS: BASOPHILS ABSOLUTE AUTO 0.02 K/mm3 (0.00-0.23); BASOPHILS PERCENT AUTO 0 % (0-2); EOSINOPHILS ABSOLUTE AUTO 0.06 K/mm3 (0.00-0.68); EOSINOPHILS PERCENT AUTO 1 % (0-6); Hematocrit 35.4 % (37.0-53.0); IMMATURE GRAN ABSOLUTE AUTO 0.07 K/mm3 (0.00-0.10); IMMATURE GRAN PERCENT AUTO 1 % (0-1); LYMPHOCYTES ABSOLUTE AUTO 1.29 K/mm3 (0.84-5.20); LYMPHOCYTES PERCENT AUTO 10 % (21-46); MONOCYTES ABSOLUTE AUTO 0.83 K/mm3 (0.16-1.47); MONOCYTES PERCENT AUTO 7 % (4-13); Mean Corpuscular HGB 28.1 pg (26.0-34.0); Mean Corpuscular HGB Conc 31.1 g/dL (31.5-36.5); Mean Corpuscular Volume 91 fL (80-100); Mean Platelet Volume 10.2 fL (9.1-12.4); NEUTROPHILS ABSOLUTE AUTO 10.35 K/mm3 (1.96-9.15); NEUTROPHILS PERCENT AUTO 82 % (41-73); Platelet Count 210 K/mm3 (150-400); RDW Coefficient Variation 15.2 % (11.7-14.2); RDW Standard Deviation 50.3 fL (35.1-46.3); Red Blood Cell Count 3.91 M/mm3 (4.30-5.90); White Blood Cell Count 12.62 K/mm3 (4.00-11.30)
[2021-08-02 04:53] LABS: Albumin, Blood 2.5 g/dL (3.4-5.0); Anion Gap 8 mmol/L (6-16); Blood Urea Nitrogen 22 mg/dL (8-24); CO2, Blood 31 mmol/L (21-32); Calcium, Blood 8.9 mg/dL (8.5-10.1); Chloride, Blood 102 mmol/L (98-108); Creatinine, Blood 1.05 mg/dL (0.60-1.20); Glomerular Filtration Rate >60 (60-); Glucose, Blood 155 mg/dL (70-99); Sodium, Blood 141 mmol/L (136-145)
--- NOTE | 2021-08-02 05:48 | NUR ---
ELIGIBILITY EXAMINER SUMMARY PT IS AXO X4 AND COMMUNICATING APPROPRIATELY ALTHOUGH HE HAS BEEN VERY AGGRESSIVE WITH THE FEMALE STAFF MEMBERS. OBVIOUSLY THE BIGGEST CHANGE THIS SHIFT IS THAT THE PT IS PRODUCING LARGE AMOUNTS OF STOOL FROM HIS URETHRA, SEE PREVIOUS NOTE. PRIOR TO THE STOOL THE PT WAS PASSING YELLOWISH PURULENT DISCHARGE WITH HIS URINE BUT HAD NO STOOL IN IT UNTILE APPROX 0230. IMAGING HAS BEEN ORDERED PER PROVIDER. PT HAS HAD NO CHANGES W HIS VS EXCEPT FOR SLIGHT RISE IN TEMPATURE W A PEAK TEMP OF 100.0. BP REMAINS WNL AND STABLE AND TELE SHOWING SR IN THE 70'S. O2 SATS >94% ON 2L NC. PT UPDATED ON HIS POSSIBLE CONDITION AND STATED THAT "I WILL NOT HAVE SURGERY" AND THAT "I WILL BE GOING HOME NO MATTER WHAT". PT EDUCATED ON THE DANGERS OF HIS CONDITION AND HE WAS NOT INTERESTED. PT HAS BEEN HELD NPO SINCE 229 IN CASE OF POSSIBLE PROCEDURE. WILL REPORT TO ONCOMING MARICRUZ
--- NOTE | 2021-08-02 08:50 | NUR ---
INITIAL ASSESSMENT: Patient is resting with eyes closed, easily awakens with verbal stimuli. He is alert and oriented, KOBUK. He denies pain while laying still, however with movement his pain increases to an 8/10-he was given tylenol with AM meds. HRR. LS Dim and corse with some wheezing noted to the right side. Biox stable on 2l via NC-per patient this is what he wears all the time at home. Breathing tx given by RT per patient request. He has a coarse NPC. BT+. PPP. Some red/purplish discoloration and dry scaly skin noted to about mid maloney down to the ankle. He has scattered abrasions, bruises, and skin tears. a gauze dressing to the right upper arm, CDI. Per the noc shift RN the patient has been having what looks to be loose stool coming from the urethrea, smaple was left in the bathroom,plan for an ultrasound this morning to assess if there is a fistula. VSS. AM meds given with water. Patient just keeps stating he wants to go home. He was updated on the plan to evaluate his bladder issue today and have therapy come to see him, he verbalizes understanding.
--- NOTE | 2021-08-02 10:51 | NUR ---
Update: Patient was complaining of increasing pain to his lower back, he states he takes oxycodone at home everyday, call placed to MD-see new orders. Patient is resting comfortably in bed at this time. Will continue to monitor.
--- NOTE | 2021-08-02 11:00 | NUR ---
Update: Palliative care at bedside to discuss goals of care with patient. Patient became upset with conversation. Shortly after this conversation PT came to measure patient for wheelchair, pt was very uncooperative yelling at staff. He was left sitting on the edge of the bed after refusing to get into the recliner or lie back down. Patient asked to scoot his hips back, this he also refused. Breakfast placed in front of patient. MATTY.
--- NOTE | 2021-08-02 14:00 | NUR ---
Update: Several attempts made to perform and ultrasound of the patients bladder to acertain if he has a fistula or not, the patient has not had his bladder full enough to adequately complete this test. Ultrasound tried one other time. VSS. Dr. Mayfield has come to see the patient, he is insistent on going home. Care management states the patient has 24 hour care givers at home, he sometimes will not allow them to enter his home. Call placed to Dr. savage office by palliative care RN to talk about patients mentation and the fact that he may have some early signs of dementia presenting. Patient was assisted to lie back down. Plan to discharge home after wheelchair arrives.
--- NOTE | 2021-08-02 14:50 | NUR ---
Maladaptive and disruptive consult order processed. Conversations facilitated with [facility] stakeholders. Strategy is to dispostition the pt today. It is reported that his conduct has improved. No further intervention needed at this time.
[2021-08-02] MEDS ORDERED: Acetaminophen650 M1 PO (15:26)
[2021-08-02] MEDS ORDERED: VISBIOME 112.51 EACH PO (15:27)
[2021-08-02] MEDS ORDERED: CEPH500 PO (15:27)
--- NOTE | 2021-08-02 17:10 | NUR ---
Wheelchair arrived from [facility]. Patients ride arrived home via [facility]. Discharge instructions reviewed with patient, he verbalized understanding. I stressed the importance to the patient for him to garbage pick up worker his new medications from the pharmacy and take them. Patient to home via .
--- NOTE | 2021-08-02 17:52 | NUR ---
Met with pt contentious and repet ative conversation. he is adamant to go home. only want to see his doctor. Will request ot eval for dementia. Notified his primary care provider of his issues will follow up with aps.
[2021-08-03] MEDS ORDERED: Percocet 5-3251 EACH PO (16:06)
== END 2021-08-02 17:05 | disposition home health service (06) ==
LOC: ER 20:43 → ERHOLD 20:44 → PCU 20:44 → ERHOLD 08-01 04:21 → PCU 08-01 04:21 → ER 08-01 04:21 → ERHOLD 08-01 05:00 → PCU 08-01 05:00
PROVIDERS: Family Medicine; Student in an Organized Health Care Education/Training Program; ADMIT Internal Medicine
DX: R53.1 Weakness (principal); J44.9 Chronic obstructive pulmonary disease, unspecified; I10 Essential (primary) hypertension; E78.5 Hyperlipidemia, unspecified; K80.20 Calculus of gallbladder without cholecystitis without obstruction; K42.9 Umbilical hernia without obstruction or gangrene; K57.30 Diverticulosis of large intestine without perforation or abscess without bleeding; D72.829 Elevated white blood cell count, unspecified; N17.9 Acute kidney failure, unspecified; E87.6 Hypokalemia; N39.0 Urinary tract infection, site not specified; S09.90XA Unspecified injury of head, initial encounter; S30.1XXA Contusion of abdominal wall, initial encounter; R62.7 Adult failure to thrive; J96.11 Chronic respiratory failure with hypoxia; M47.812 Spondylosis without myelopathy or radiculopathy, cervical region; M80.88XA Other osteoporosis with current pathological fracture, vertebra(e), initial encounter for fracture; R41.0 Disorientation, unspecified; Z86.73 Personal history of transient ischemic attack (TIA), and cerebral infarction without residual deficits; W19.XXXA Unspecified fall, initial encounter; Z88.8 Allergy status to other drugs, medicaments and biological substances; Z85.9 Personal history of malignant neoplasm, unspecified; Z79.899 Other long term (current) drug therapy
CPT/HCPCS: 36415; 51798; 70450; 72125; 74176; 76857; 80048; 80053; 80069; 81001; 82550; 82803; 83880; 84132; 85025; 87086; 94640; 94760; 96374; 97163; 97165; 97530; 99285-25; A9270; J0696; J1650; J3480; J7030; J7050; J7512

== ENCOUNTER 2021-08-03 14:24 | Emergency (ER) | payer MEDICARE, OTHER ==
[~2021-08-03] VITALS: Ht 188 cm; Wt 86.2 kg
[~2021-08-03 14:24] MED LIST changes: +Acetaminophen650 M1 PO; +VISBIOME 112.51 EACH PO
[2021-08-03] MEDS ORDERED: Percocet 5-3251 EACH PO (16:06)
== END 2021-08-03 17:13 | disposition home or self-care (01) ==
LOC: ER 14:24
DX: S22.089A Unspecified fracture of T11-T12 vertebra, initial encounter for closed fracture (principal); G89.29 Other chronic pain; M54.6 Pain in thoracic spine; J44.9 Chronic obstructive pulmonary disease, unspecified; I10 Essential (primary) hypertension; E78.5 Hyperlipidemia, unspecified; Z91.048 Other nonmedicinal substance allergy status; Z79.82 Long term (current) use of aspirin; Z79.899 Other long term (current) drug therapy; W19.XXXA Unspecified fall, initial encounter
CPT/HCPCS: 99283